=== PATIENT | female | born 1975 | race Caucasian/White ===

== ENCOUNTER 2025-06-30 07:02 | Day surgery (SDC) | payer OTHER ==
[~2025-06-30] VITALS: Ht 175.3 cm; Wt 101.4 kg
[~2025-06-30 07:02] MED LIST: SODIUM CHLORIDE 0.9% 1,000 ML ONE
[2025-06-30] MEDS: SODIUM CHLORIDE 0.9% 1,000 ML IV ONE (07:39)
[2025-06-30] MEDS ORDERED: MIDAZOLAM HCL 2 MG/2 ML VIAL ONE (07:41)
[2025-06-30] MEDS ORDERED: FentaNYL CITRATE PF 100 MCG/2 ML VIAL ONE (07:41)
[2025-06-30] MEDS ORDERED: SOLI10TA7 PO (07:53)
[2025-06-30] MEDS ORDERED: MONT-40 PO (07:53)
[2025-06-30] MEDS ORDERED: ASPI-1444 PO (07:53)
[2025-06-30] MEDS ORDERED: AMLO5TAB66 PO (07:53)
[2025-06-30] MEDS ORDERED: ACYC-428 PO (07:53)
[2025-06-30] MEDS ORDERED: BUPR-722 PO (07:53)
[2025-06-30] MEDS ORDERED: FLUT12AE3 IH (07:53)
[2025-06-30] MEDS ORDERED: FAMO20TA8 PO (07:53)
[2025-06-30] MEDS ORDERED: PANT40TA54 PO (07:53)
[2025-06-30] MEDS ORDERED: BUPR-49 PO (07:53)
[2025-06-30] MEDS ORDERED: MIRA50TA PO (07:53)
[2025-06-30] MEDS ORDERED: IBUP-2077 PO (07:53)
[2025-06-30] MEDS ORDERED: BUSP15TA3 PO (07:53)
[2025-06-30] MEDS ORDERED: ISOS30TA92 PO (07:53)
[2025-06-30] MEDS ORDERED: ALBU18HF12 IH (08:00)
[2025-06-30] MEDS ORDERED: GABA-1181 PO (08:00)
[2025-06-30] MEDS ORDERED: TRAZ-257 PO (08:00)
[2025-06-30] MEDS ORDERED: HYDR10SY17 PO (08:00)
[2025-06-30] MEDS ORDERED: CETI10TA77 PO (08:00)
[2025-06-30] MEDS ORDERED: DULO60CA73 PO (08:00)
[2025-06-30] MEDS ORDERED: ARIP10TA38 PO (08:00)
[2025-06-30] MEDS ORDERED: BACL10TA PO (08:00)
[2025-06-30] MEDS ORDERED: METH-386 PO (08:00)
[2025-06-30] MEDS ORDERED: LOSA-381 PO (08:00)
[2025-06-30] MEDS ORDERED: ONDA-104 PO (08:00)
[2025-06-30 09:47] VITALS: PULSE 67; RESP 18; O2SAT 100
[2025-06-30] MEDS ORDERED: LIDOCAINE 2% 11 ML JELLY ONE (12:00)
[2025-06-30] MEDS ORDERED: BENZOCAINE 20% 50 MCG/SPRAY 57 GM ONE (12:00)
[2025-06-30] MEDS ORDERED: LIDOCAINE 4% 50 ML SOLUTION ONE (12:00)
[2025-06-30] MEDS ORDERED: ALBUTEROL SULFATE 2.5 MG/0.5 ML NEB SOLUTION NEB ONE (12:00)
== END 2025-06-30 12:45 | disposition home or self-care (01) ==
LOC: SDS 07:02
PROVIDERS: ATTEND Internal Medicine Critical Care Medicine
DX: J38.4 Edema of larynx (principal); B37.0 Candidal stomatitis; R05.3 Chronic cough; R06.2 Wheezing; R04.2 Hemoptysis
CPT/HCPCS: 31623; 87206; 87101; 87220; 87070; 31624; 71045; 87015; J3010; J2250; J2919; J7030; J7613; Z7610